=== PATIENT | male | born 2000 | race Caucasian/White ===

== ENCOUNTER 2022-07-23 02:47 | Emergency (ER) | payer SELFPAY ==
[2022-07-23 02:58] VITALS: BP 130/80; PULSE 74; RESP 16; TEMP 37; O2SAT 99; BMI 23.4
--- NOTE | 2022-07-23 03:06 | ED.GENADULT ---
HPI - General Adult General Chief complaint: General Medical Stated complaint: Psych Time Seen by Provider: 07/23/22 03:06 Source: patient Mode of arrival: ambulatory Limitations: no limitations History of Present Illness HPI narrative: Patient no psychological disorder got upset with police told him to go to the hospital for medical attention or halfway patient preferred to go the hospital Related Data Allergies Allergy/AdvReac Type Severity Reaction Status Date / Time No Known Allergies Allergy Verified 07/23/22 03:05 Review of Systems Review of Systems: Yes all other systems are reviewed and are negative [facility] Social History Social History Advance Directives: No Physical Exam ED Vital Signs: Vital Signs - 24 hr 07/23/22 02:58 Temperature 98.6 F Pulse Rate 74 Respiratory Rate 16 Blood Pressure 130/80 Pulse Oximetry 99 Oxygen Delivery Method Room Air BMI result Body Mass Index 23.4 Appearance: Alert. Oriented X3. No acute distress. Eyes: PERRLA, No Nystagmus ENT: Pharynx normal. Oral Mucosa moist Neck: Normal inspection. Neck supple. CVS: Normal heart rate and rhythm. Pulses normal. Respiratory: No respiratory distress. Equal air entry bilateral, no wheezing/rales/rhonchi Abdomen: Soft and nontender. Bowel sounds are present, no mass palpable, no CVA tenderness Skin: Skin warm and dry. Normal skin color. Normal skin turgor. Extremities: No lower extremity edema. No calf tenderness Neuro: Oriented X 3. No motor deficit. No sensory deficit.No cerebellar signs , cranial nerves II-XII intact Medical Decision Making MDM Narrative Medical decision making narrative: Patient had a upset mood when police came otherwise he is at baseline no active complaints discharge patient home Discharge Plan Discharge Clinical Impression: Mood disorder Patient Disposition: Home, Self-Care Instructions: Mood Disorders (ED) Additional Instructions: Care and follow-up as advised Interventions: ED Discharge Assessment Last Done: 07/23/22 03:28 Discharge Date/Time: 07/23/22 03:29
--- NOTE | 2022-07-23 03:24 | PC.NURSE ---
pt alert, no sob or chest pain. Reviewed discharge instructions, pt verbalized understanding
== END 2022-07-23 03:29 | disposition home or self-care (01) ==
LOC: HO.ED 03:17
PROVIDERS: Emergency Provider Internal Medicine
DX: F39 Unspecified mood [affective] disorder (principal)
CPT/HCPCS: 99282